=== PATIENT | female | born 1975 | race Caucasian/White ===

== ENCOUNTER 2022-06-14 07:36 | Outpatient (REF) | payer OTHER, SELFPAY ==
[2022-06-14 12:00] LABS: Hemoglobin 13.7 g/dl (12.0-16.0); Mean Corpuscular HGB Conc 34.3 g/dl (31.0-35.0); Mean Corpuscular Hemoglobin 31.6 pg (27.0-33.0); Mean Corpuscular Volume 92.2 fL (80.0-98.0); Mean Platelet Volume 10.1 fL (9.4-12.3); Platelet Count 360 X10*3/uL (160-400); Red Blood Count 4.34 X10*6/uL (4.20-5.50); Red Cell Distribution Width 12.7 % (11.0-16.0); White Blood Count 7.1 X10*3/uL (4.8-10.8)
[2022-06-14 13:03] LABS: Alanine Aminotransferase 12 U/L (0-31); Albumin Level 3.7 g/dL (3.5-5.0); Alkaline Phosphatase 71 U/L (39-117); Anion Gap 14 (12-20); Aspartate Amino Transferase 16 U/L (5-31); Bilirubin Total 0.6 mg/dL (0.0-1.0); Blood Urea Nitrogen 13 mg/dL (9-16); Calcium 9.2 mg/dL (8.4-10.2); Carbon Dioxide 22 mmol/L (22-29); Chloride 109 mmol/L (96-108); Cholesterol 239 mg/dL; Estimated Glomerular Filt Rate > 60; Glucose Fasting 89 mg/dL (60-99); HDL Cholesterol 43 mg/dL; LDL Cholesterol Calculated 151 mg/dl; Potassium 4.6 mmol/L (3.3-5.1); Sodium 140 mmol/L (135-145); Triglycerides 228 mg/dL
[2022-06-14 13:05] LABS: TSH reflex Free T4 2.02 uIU/mL (0.32-4.0)
== END 2022-06-14 07:37 | disposition home or self-care (01) ==
LOC: HO.WFDLDS 07:36
PROVIDERS: Visit Provider Hospitalist
DX: Z00.00 Encounter for general adult medical examination without abnormal findings (principal); E66.01 Morbid (severe) obesity due to excess calories; E78.00 Pure hypercholesterolemia, unspecified; J45.909 Unspecified asthma, uncomplicated
CPT/HCPCS: 36415; 80053; 80061; 84443; 85027

== ENCOUNTER 2024-11-23 08:02 | Outpatient (AMB) | payer OTHER, SELFPAY ==
[2024-11-23 08:04] VITALS: BP 132/66; PULSE 85; TEMP 36.8; O2SAT 98; BMI 40.3
--- NOTE | 2024-11-23 08:04 | MHC.OFFWIV ---
Intake Vital Signs 11/23/24 08:04 Height 5 ft 2 in Weight 220 lb 4 oz BMI 40.3 BP 132/66 Blood Pressure Location Lt brachial Position Sitting Pulse 85 Pulse Source Pulse Oximeter Temp 98.2 F Temp Source Temporal Artery Scan Pulse Oximetry (%) 98 Oxygen Delivery Method Room Air Intake Visit Reasons: EP Pain in calf, redness Intake Note: Pt presents to the office today for c/o pain and redness in her left calf x3 days. Pt denies any injury to her leg. Patient Tobacco Use Status: Never used Tobacco Allergies No Known Allergies (No Known Allergies*) Allergy (Verified 11/23/24 08:07) seasonal Allergy (Mild, Uncoded 11/23/24 08:07) Hives HPI HPI Comments History of Present Illness Details History of Present Illness - The patient is a 49-year-old female presenting with a painful red spot on the back of the left calf. - The lesion was first noticed on Friday and is described as red and painful to touch. - The lesion is raised and tender, causing discomfort when touched or bumped. - The patient reports being woken up by pain in the left lower leg. - She has recently started a part-time job requiring prolonged standing, which may contribute to her symptoms. - There is no associated numbness, tingling, or generalized leg swelling, only localized swelling in the affected area. - The patient denies any recent trauma to the area and reports no systemic symptoms such as chest pain, shortness of breath, or fever. Physical Exam General: Cooperative, healthy appearing, comfortable, no acute distress and well developed Orientation: Patient oriented x3 Respiratory: Normal respiratory effort and able to speak in complete sentences. Clear to auscultation bilaterally. No w/r/r noted. Cardiovascular: Regular rate and rhythm. Normal S1 and S2. No m/r/g noted. Skin: Red, raised area on the back of the left calf, tender to touch. No fluctuance noted. No streaking noted. Neuro: Sensation is intact. Extremities: Normal to inspection. No pitting edema noted. FROM of the left knee, ankle. TTP of the left upper posterior calf under the posterior fossa. Strength is 5/5 on the LE bilaterally. Ambulates with a steady gait. Patient was informed and verbally consented to the use of an ambient scribe for clinic note documentation during this visit [facility] Medical History Hypertension Sinusitis Asthma Family History Mother Hypertension Hyperlipidemia Colon cancer No family history of mental disorder Father Hyperlipidemia Alcoholism Cardiovascular disease Social History Household Members: Spouse and Family Housing: House Alcohol intake: current Alcohol intake frequency: a few times a week Alcohol type: wine Patient Tobacco Use Status: Never used Tobacco Current occupational status: employed Review of Systems Const All systems reviewed & are unremarkable except as noted in HPI and below Physical Exam Vital Signs: Last Vital Signs Temp 98.2 F 11/23/24 08:04 Pulse 85 11/23/24 08:04 BP 132/66 11/23/24 08:04 Pulse Ox 98 11/23/24 08:04 Oxygen Delivery Method Room Air 11/23/24 08:04 BMI result Body Mass Index 40.3 Assessment & Plan Assessment & Plan (1) Pain of left calf: Code(s): M79.662 - Pain in left lower leg Plan Most likely superficial phleblitis vs cellulitis vs DVT plan - will order an u/s to r/o DVT - heat and/or ice to the leg - tylenol or motrin as needed Orders: Orders US venous duplex LE LT Today M79.662 - Pain in left lower leg Coding Level of Care Code Est Pt Level 4 (85146) Diagnoses Pain of left calf M79.662
--- OUTSIDE RECORDS SUMMARY | 2024-11-23 08:38 | XMS_ITS | Encounter Summary ---
Author Organization [facility] Address [id number] [place] [id number] Care Team Providers Care Police Inspector Name Role Phone Lucy Mays NP Primary Care Provider + Reason for Visit * Reason Onset Date Comments MISSING INFORMATION 10/20/2024 Encounter Details Date Type Department Care Team (Late st Contact Info) Description 10/20/2024 Telephone Gastroenterology - [address] [place] [address] Boo Johnson MD [address] [place] [phone] Social History Tobacco Use Types Packs/Day Years Used Date Smoking Tobacco: Never Alcohol Use Standard Drinks/Week Comments No 0 (1 standard drink = 0.6 oz pur e alcohol) Comments Unknown Sex and Gender Information Value Date Recorded Sex Assigned at Not on file Legal Sex Female 6:27 PM EST Gender Identity Not on file Sexual Orientation Not on file documented as of this encounter Progress Notes * Geena Salter - 10/20/2024 9:48 AM EDT Referral received from Lucy Mays office for elevated lft's--Missing more recent office notes,med and allergy list--Req faxed to pcp documented in this encounter Plan of Treatment Not on file documented as of this encounter Visit Diagnoses Not on filedocumented in this encounter Care Teams Police Inspector Relationship Specialty Start Date End Date Lucy Mays NP [address] [place] [address] PCP - General Family Medicine 10/20/24 documented as of this encounter
--- OUTSIDE RECORDS SUMMARY | 2024-11-23 08:38 | XMS_ITS | Clinical Summary ---
Author Organization [facility] [address] [facility] Address [address] [place] [address] Phone Care Team Providers Care Group Fitness Assistant Department Head Name Role Phone TabathaLucy NP Primary Care Provider + Encounters Date Type Department Care Team Description 10/20/2024 Telephone Gastroenterology - [address] [phone] Boo Johnson MD from Last 3 Months Surgical History Surgery Date Site/Laterality Comments BREAST LUMPECTOMY left breast 1995 PROCEDURE: HISTORICAL BREAST LUMPECTOMY; COMMENT: Benign fibroadenoma VAGINAL DELIVERY PROCEDURE: OR VAGINAL DELIVERY ONLY; COMMENT: x1 PLACENTAL ABRUPTION AT 26 WEEKS GESTATION Family History Medical History Relation Name Comments Heart attack Father Breast cancer Maternal Grandmother Relation Name Status Comments Brother Alive Father IN Maternal Grandfather Maternal Grandmother Mother Alive Paternal Grandfather Paternal Grandmother Sister Alive Son Alive Social History Tobacco Use Types Packs/Day Years Used Date Smoking Tobacco: Never Alcohol Use Standard Drinks/Week Comments No 0 (1 standard drink = 0.6 oz pur e alcohol) Comments Unknown Sex and Gender Information Value Date Recorded Sex Assigned at Not on file Legal Sex Female 6:27 PM EST Gender Identity Not on file Sexual Orientation Not on file Obstetrics History Plan of Treatment Health Maintenance Due Date Last Done Comments Breast Cancer Screening 1977 DTaP,Tdap,and Td Vaccines (1 - Tdap) 1996 Hepatitis B Vaccines (1 of 3 - 19+ 3-dose series) 1996 Cervical Cancer Screening: P ap Smear 1998 Depression Screening 03/17/2024 Colorectal Cancer Screening: Colonoscopy 10/20/2024 HIV Screening 10/20/2024 Hepatitis C Screening 10/20/2024 Social Influencers of Health Screening 10/20/2024 COVID-19 Vaccine (1 - 2023-2 5 season) 2024 Influenza Vaccine (#1) 2024 HIB Vaccines Aged Out No longer eligi ble based on patient's age to complete this topic HPV Vaccines Aged Out No longer eligi ble based on patient's age to complete this topic Hepatitis A Vaccines Aged Out No long er eligible based on patient's age to complete this topic IPV Vaccines Aged Out No longer eligi ble based on patient's age to complete this topic MMR Vaccines Aged Out No longer eligi ble based on patient's age to complete this topic Meningococcal ACWY Vaccine Aged Out N o longer eligible based on patient's age to complete this topic Meningococcal B Vaccine Aged Out No l onger eligible based on patient's age to complete this topic Pneumococcal Vaccine: Pediat rics (0 to 5 Years) and At-Risk Patients (6 to 49 Years) Aged Out No longer eligible b ased on patient's age to complete this topic RSV Immunization Patients Un kortney 20 months Aged Out No longer eligible b ased on patient's age to complete this topic Varicella Vaccines Aged Out No longer eligible based on patient's age to complete this topic Insurance [facility] [id number] [facility] [address] [place] [address] Care Teams Group Fitness Assistant Department Head Relationship Specialty Start Date End Date Lucy Mays NP [address] [facility] [address] [place] [address] PCP - General Family Medicine 10/20/24
== END 2024-11-23 09:34 | disposition home or self-care (01) ==
PROVIDERS: PCP Hospitalist; Visit Provider Physician Assistant Medical
DX: M79.662 Pain in left lower leg (principal)

== ENCOUNTER 2024-11-23 09:19 | Outpatient (REF) | payer OTHER, SELFPAY ==
--- NOTE | ~2024-11-23 | US_ITS ---
EXAMINATION: US TRIPLEX LOWER EXTREMITY, LEFT CLINICAL INFORMATION: Left lower extremity pain COMPARISON: None available. TECHNIQUE: Color-flow triplex imaging with spectral analysis and compression Doppler were performed on the left lower extremity. FINDINGS: Respiratory variation, normal compression and augmented flow are noted throughout the left lower extremity. The visualized common femoral vein, superficial femoral vein, profunda femoral vein, popliteal vein and midcalf peroneal and posterior tibial venous segments show no evidence of deep venous thrombosis. Greater saphenous vein is patent with flow at the confluence with the common femoral vein. There is a varicosity communicating with the proximal small saphenous vein that demonstrates low-level internal echogenicity, no compression, and no flow color Doppler. In addition, the small saphenous vein also demonstrates low-level internal echogenicity and is noncompressible in the proximal and mid portions of the vessel. The distal portion of the vessel is partially compressible. US/US venous duplex LE IMPRESSION: Superficial venous thrombosis involving the left proximal and mid small saphenous vein and a partial thrombosis in the distal vein. There is also a thrombosed varicosity associated with the proximal small saphenous vein. MADAY Serna notified by the US technologist No evidence of deep venous thrombosis involving the left lower extremity. Electronically signed by: Blaine Kim MD 11/23/2024 10:05 AM EDT
== END 2024-11-23 09:20 | disposition home or self-care (01) ==
LOC: HO.HMGCX 09:19
PROVIDERS: PCP Nurse Practitioner Family; Visit Provider Physician Assistant Medical
DX: M79.662 Pain in left lower leg (principal)
CPT/HCPCS: 93971

== ENCOUNTER → 2024-11-23 09:27 | Outpatient (BNV) | payer OTHER, SELFPAY | PROVIDERS: PCP Nurse Practitioner Family; Visit Provider Radiology Diagnostic Radiology | DX: M79.662 Pain in left lower leg (principal) | CPT/HCPCS: 93971 ==

== ENCOUNTER 2024-11-23 09:49 | Outpatient (REF) | payer OTHER, SELFPAY | END 2024-11-23 09:50 | disposition home or self-care (01) | LOC: HO.HMGCX 09:49 | PROVIDERS: Visit Provider Physician Assistant Medical | DX: Z13.89 Encounter for screening for other disorder (principal) ==